=== PATIENT | female | born 1980 | race Two or more races ===

== ENCOUNTER 2018-03-12 15:10 | Emergency (ER) | payer OTHER ==
[~2018-03-12] VITALS: Ht 162.6 cm; Wt 126.6 kg
[~2018-03-12 15:10] MED LIST: DOLOGEN CAPLET1 EACH PO; HYDROCHLOROTHIA25 MG; MEDROL4 MG PO
== END 2018-03-12 16:26 | disposition home or self-care (01) ==
LOC: ER 15:10
DX: M54.5 Low back pain (principal)

== ENCOUNTER 2018-07-21 13:09 | Emergency (ER) | payer OTHER ==
[~2018-07-21] VITALS: Ht 167.6 cm; Wt 122.5 kg
== END 2018-07-21 17:14 | disposition home or self-care (01) ==
LOC: ER 13:09
DX: M75.82 Other shoulder lesions, left shoulder (principal)

== ENCOUNTER 2018-12-29 09:39 | Emergency (ER) | payer OTHER ==
[~2018-12-29] VITALS: Ht 167.6 cm; Wt 121.1 kg
[2018-12-29] MEDS ORDERED: NAPR500T14 PO (10:00)
[2018-12-29] MEDS ORDERED: HYDROCHLOROTH12.5 M1 PO (10:00)
== END 2018-12-29 13:35 | disposition home or self-care (01) ==
LOC: ER 09:39
DX: M54.31 Sciatica, right side (principal); M79.604 Pain in right leg

== ENCOUNTER 2019-07-01 12:18 | Emergency (ER) | payer OTHER ==
[~2019-07-01] VITALS: Ht 167.6 cm; Wt 126.6 kg
[~2019-07-01 12:18] MED LIST changes: +HYDROCHLOROTH12.5 M1 PO; +NAPR500T14 PO
[2019-07-01] MEDS ORDERED: HYDROCHLOROTHIA25 MG (13:03)
== END 2019-07-01 14:41 | disposition home or self-care (01) ==
LOC: ER 12:18
DX: N39.0 Urinary tract infection, site not specified (principal); R10.2 Pelvic and perineal pain

== ENCOUNTER 2023-01-11 17:28 | Emergency (ER) | payer OTHER ==
[~2023-01-11] VITALS: Ht 167.6 cm; Wt 127.0 kg
[2023-01-11] MEDS ORDERED: STAHIST AD TAB1 EACH PO (17:58)
[2023-01-11] MEDS ORDERED: ZESTRIL10 M1 PO (17:58)
[2023-01-11] MEDS ORDERED: CLARITIN10 M1 PO (17:59)
[2023-01-11] MEDS ORDERED: NORFLEX100MG PO (21:18)
[2023-01-11] MEDS ORDERED: KETO10TA2 PO (21:18)
== END 2023-01-11 21:57 | disposition home or self-care (01) ==
LOC: ER 17:28
DX: M54.89 Other dorsalgia (principal); R53.1 Weakness; M54.9 Dorsalgia, unspecified; Z88.0 Allergy status to penicillin

== ENCOUNTER 2023-03-02 16:34 | Emergency (ER) | payer OTHER ==
[~2023-03-02] VITALS: Ht 167.6 cm; Wt 127.9 kg
[~2023-03-02 16:34] MED LIST changes: +CLARITIN10 M1 PO; +KETO10TA2 PO; +NORFLEX100MG PO; +STAHIST AD TAB1 EACH PO; +ZESTRIL10 M1 PO
== END 2023-03-03 04:49 | disposition home or self-care (01) ==
LOC: ER 16:34
DX: R10.84 Generalized abdominal pain (principal); R11.10 Vomiting, unspecified

== ENCOUNTER 2025-06-20 11:29 | Inpatient (IN) | payer OTHER ==
[~2025-06-20] VITALS: Ht 167.6 cm; Wt 1202.0 kg
[2025-06-20] MEDS ORDERED: hydrALAZINE HCL 20 MG VIAL ONE (12:10)
[2025-06-20] MEDS ORDERED: hydrALAZINE HCL 20 MG VIAL IV ONE (12:15)
[2025-06-20 12:28] LABS: BASO % 0.5 % (0.1-1.2); EOS # 0.11 (0.04-0.54); EOS % 1.9 % (0.7-7.0); LYMPH # 2.19 (1.18-3.74); LYMPH % 37.7 % (19.3-53.1); MEAN PLATELET VOLUME 10.20 fl (9.4-12.4); MONO # 0.35 (0.24-0.82); MONO % 6.0 % (4.7-12.5); NEUT # 3.00 (1.56-6.13); NEUT % 51.7 % (34.0-71.1); RED CELL DISTRIBUTION WIDTH 13.4 % (11.6-14.4)
[2025-06-20 12:34] LABS: ABG PH 7.445 (7.35-7.45); BICARBONATE 25.5 mmol/l (23-25)
[2025-06-20 12:56] LABS: ALT/SGPT 25.0 U/L (12-78); AST/SGOT 16.0 U/L (15-37); BILIRUBIN TOTAL 0.7 mg/dL (0.3-1.2); BUN CREA RATIO 14.0 (7.0-25.0); CREATININE SERUM 0.64 mg/dL (0.55-1.02); GFR 100.35; GLOBULINA 4.6 G/DL (2.4-3.5); GLUCOSE FASTING 98.0 mg/dL (65-100); LDH 302.0 U/L (84-246); OSMOLALITY SERUM 280.0 MOSM/KG (275-295); PHOSPHOKINASE CREATININE 176.0 U/L (26-192)
[2025-06-20 13:02] LABS: INR 1.04
[2025-06-20 14:08] LABS: ABG PO2 57.4 mmHg (80-100)
[2025-06-20 14:09] LABS: o2 21 %
[2025-06-20 14:14] LABS: URINE BILIRRUBIN NEGATIVE (NEGATIVE); URINE BLOOD NEGATIVE; URINE GLUCOSE NEGATIVE (NEGATIVE); URINE KETONE NEGATIVE (NEGATIVE); URINE LEUKOCYTE NEGATIVE; URINE NITRATE NEGATIVE; URINE PROTEIN NEGATIVE (NEGATIVE); URINE UROBILINOGEN 0.2 E.U./dl
[2025-06-20 14:26] LABS: COVID-19 AG NEGATIVE (NEGATIVE)
[2025-06-20 14:37] LABS: URINE APPEARANCE CLEAR; URINE COLOR YELLOW
[2025-06-20 14:39] LABS: URINE BACTERIA SOME; URINE CRYSTALS NEGATIVE /HPF; URINE EPITHELIAL CELLS 0-4 /HPF; URINE MUCUS NEGATIVE; URINE RBC 0-3 /HPF; URINE WBC 0-2 /hpf
[2025-06-20] MEDS ORDERED: FAMOTIDINE/PF 20 MG in 0.9 % SODIUM CHLORIDE 8 ML IV PUSH SCH (18:09)
[2025-06-20] MEDS ORDERED: levoFLOXacin IN DEXTROSE 5 % 150 ML IV SCH (18:09)
[2025-06-20] MEDS ORDERED: GUAIFEN/DEXTROMETHORPHAN/PE 10 ML BLIST.PACK PO SCH (18:09)
[2025-06-20] MEDS ORDERED: METHYLPREDNISOLONE SOD SUCC 125 MG VIAL IV ONE (18:15)
[2025-06-20] MEDS ORDERED: LEVALBUTEROL HCL 1.25 MG/3 ML SOLUTION IH SCH ×2 (18:15→21:00)
[2025-06-20] MEDS ORDERED: IPRATROPIUM BROMIDE 0.5 MG/2.5 ML AMPUL.NEB IH SCH ×2 (18:15→21:00)
[2025-06-20] MEDS ORDERED: ACETAMINOPHEN 500 MG GEL..CAP PO PRN (18:15)
[2025-06-20] MEDS ORDERED: 0.9 % SODIUM CHLORIDE 1,000 ML IV SCH (18:15)
[2025-06-20] MEDS ORDERED: GUAIFEN/DEXTROMETHORPHAN/PE 10 ML BLIST.PACK PO ONE (18:23)
[2025-06-20] MEDS ORDERED: METHYLPREDNISOLONE SOD SUCC 125 MG VIAL ONE (18:23)
[2025-06-20] MEDS ORDERED: FAMOTIDINE/PF 20 MG/2 ML VIAL ONE (18:23)
[2025-06-20] MEDS ORDERED: 0.9 % SODIUM CHLORIDE 1,000 ML IV ONE (18:30)
[2025-06-20] MEDS ORDERED: IPRATROPIUM BROMIDE 0.5 MG/2.5 ML AMPUL.NEB IH ONE (19:41)
[2025-06-20] MEDS ORDERED: LEVALBUTEROL HCL 1.25 MG/3 ML SOLUTION IH ONE (19:41)
[2025-06-20 22:29] VITALS: BP 151/82; O2SAT 99
[2025-06-20 23:57] VITALS: BP 142/82; O2SAT 100
[2025-06-21] VITALS (13 sets, daily range): BP systolic 111–192; BP diastolic 54–84; O2SAT 97–100
[2025-06-21] MEDS ORDERED: IPRATROPIUM BROMIDE 0.5 MG/2.5 ML AMPUL.NEB IH ONE (00:17)
[2025-06-21] MEDS ORDERED: LEVALBUTEROL HCL 1.25 MG/3 ML SOLUTION IH ONE (00:17)
[2025-06-21] MEDS ORDERED: GUAIFEN/DEXTROMETHORPHAN/PE 10 ML BLIST.PACK PO ONE (01:07)
[2025-06-21] MEDS ORDERED: ENOXAPARIN SODIUM 40 MG/0.4 ML SYRINGE SUBCUTANEO SCH (09:00)
[2025-06-21] MEDS ORDERED: LISINOPRIL 20 MG TABLET PO SCH (09:00)
[2025-06-21] MEDS ORDERED: METOPROLOL SUCCINATE 50 MG TAB.SR.24H PO SCH (11:48)
[2025-06-21] MEDS ORDERED: HYDROCHLOROTHIAZIDE 25 MG TABLET PO SCH (11:48)
[2025-06-21] MEDS ORDERED: ACETAMINOPHEN 325 MG TABLET PO PRN (12:00)
[2025-06-21] MEDS ORDERED: ENALAPRILAT DIHYDRATE 1.25 MG/ML VIAL IV PRN (12:00)
[2025-06-21] MEDS ORDERED: ONDANSETRON HCL 2 MG/ML VIAL IM PRN (12:00)
[2025-06-21] MEDS ORDERED: NIFEDIPINE 60 MG TAB.SA.OSM PO SCH (17:00)
[2025-06-21] MEDS ORDERED: NIFEDIPINE 30 MG TAB.SA.OSM PO SCH (17:00)
[2025-06-22] VITALS (7 sets, daily range): BP systolic 134–141; BP diastolic 75–88; O2SAT 90–98
[2025-06-22] MEDS ORDERED: ANIDULAFUNGIN 100 MG VIAL IV NR (17:00)
[2025-06-23 01:49] VITALS: BP 116/74; O2SAT 99
[2025-06-23 09:04] VITALS: BP 136/83; O2SAT 100
[2025-06-23] MEDS ORDERED: ANIDULAFUNGIN 100 MG VIAL IV SCH (17:00)
[2025-06-23 19:10] VITALS: BP 134/82; O2SAT 95
[2025-06-24 00:35] VITALS: BP 98/68; O2SAT 98
[2025-06-24 08:08] VITALS: BP 119/73
[2025-06-24] MEDS ORDERED: METHYLPREDNISOLONE SOD SUCC 40 MG VIAL IV SCH (09:00)
[2025-06-24 17:24] VITALS: BP 92/67
[2025-06-25 02:17] VITALS: BP 112/70; O2SAT 96
[2025-06-25 08:42] VITALS: BP 122/81
[2025-06-25] MEDS ORDERED: LISINOPRIL 10 MG TABLET PO SCH (09:00)
[2025-06-25 17:50] VITALS: BP 119/75; O2SAT 97
[2025-06-26 04:43] VITALS: BP 112/72; O2SAT 97
[2025-06-26 10:06] VITALS: BP 109/76; O2SAT 98
[2025-06-26 18:32] VITALS: BP 122/83
[2025-06-27 02:20] VITALS: BP 111/73; O2SAT 97
[2025-06-27] MEDS ORDERED: FLUCONAZOLE IN NACL,ISO-OSM 400 MG/200 ML PIGGYBAG IV NR (09:00)
[2025-06-27 09:46] VITALS: BP 141/87; O2SAT 99
[2025-06-27 18:24] VITALS: BP 145/100; O2SAT 96
[2025-06-27 22:45] VITALS: BP 122/80; O2SAT 96
[2025-06-28 02:11] VITALS: BP 120/77; O2SAT 96
[2025-06-28 08:09] VITALS: BP 105/68
[2025-06-28] MEDS ORDERED: FLUCONAZOLE IN NACL,ISO-OSM 400 MG/200 ML PIGGYBAG IV SCH (09:00)
[2025-06-28 18:52] VITALS: BP 136/81; O2SAT 100
[2025-06-29 02:11] VITALS: BP 125/81; O2SAT 99
[2025-06-29 08:00] VITALS: BP 106/70
[2025-06-29] MEDS ORDERED: FAMOTIDINE/PF 20 MG/2 ML VIAL IV PUSH SCH (09:30)
[2025-06-29 19:00] VITALS: BP 120/86
[2025-06-30 02:23] VITALS: BP 116/72; O2SAT 98
[2025-06-30 08:32] VITALS: BP 111/73; O2SAT 99
[2025-06-30 16:17] VITALS: BP 122/75; O2SAT 97
== END 2025-06-30 16:24 | disposition home or self-care (01) | DRG 304 ==
LOC: ER 11:29 → MEDJ 19:08 → ICU-2 19:08 → SURH 19:08 → MEDJ 06-21 13:59
PROVIDERS: Emergency Medicine; ADMIT Internal Medicine; ATTEND Internal Medicine
PROC: B246ZZZ Ultrasonography of Right and Left Heart (ICD-10-PCS; principal; 2025-06-20)
PROC: BB24YZZ Computerized Tomography (CT Scan) of Bilateral Lungs using Other Contrast (ICD-10-PCS; 2025-06-20)
PROC: 3E0F7GC Introduction of Other Therapeutic Substance into Respiratory Tract, Via Natural or Artificial Opening (ICD-10-PCS; 2025-06-20)
PROC: 3E0F7SF Introduction of Other Gas into Respiratory Tract, Via Natural or Artificial Opening (ICD-10-PCS; 2025-06-20)
PROC: 4A12X4Z Monitoring of Cardiac Electrical Activity, External Approach (ICD-10-PCS; 2025-06-21)
DX: I16.1 Hypertensive emergency (principal); J81.0 Acute pulmonary edema; B49 Unspecified mycosis; I10 Essential (primary) hypertension; R09.02 Hypoxemia; Z88.0 Allergy status to penicillin